=== PATIENT | male | born 1945 | race Caucasian/White ===

== ENCOUNTER 2022-11-13 09:22 | Outpatient (CLI) | payer MEDICARE | END 2022-11-13 09:23 | disposition home or self-care (01) | LOC: TBSIIMAG 09:22 | PROVIDERS: ATTEND Neurological Surgery | DX: M47.12 Other spondylosis with myelopathy, cervical region (principal); R26.89 Other abnormalities of gait and mobility; M48.02 Spinal stenosis, cervical region | CPT/HCPCS: 70551; 72141 ==

== ENCOUNTER 2023-01-04 13:12 | Outpatient (CLI) | payer MEDICARE | END 2023-01-04 13:13 | disposition home or self-care (01) | LOC: RAD 13:12 | PROVIDERS: ATTEND Nurse Practitioner Family | DX: M47.816 Spondylosis without myelopathy or radiculopathy, lumbar region (principal); G95.20 Unspecified cord compression; M48.55XD Collapsed vertebra, not elsewhere classified, thoracolumbar region, subsequent encounter for fracture with routine healing | CPT/HCPCS: 36415; 72110; 80053; 82607; 82746; 84207; 84425; 84443; 85025; 86780 ==

== ENCOUNTER 2023-10-05 09:10 | Outpatient (CLI) | payer MEDICARE | END 2023-10-05 09:11 | disposition home or self-care (01) | LOC: MRI 09:10 | PROVIDERS: ATTEND Neurological Surgery | DX: R53.1 Weakness (principal); G31.9 Degenerative disease of nervous system, unspecified; I67.89 Other cerebrovascular disease; Z95.0 Presence of cardiac pacemaker | CPT/HCPCS: 70553; 71046 ==